=== PATIENT | male | born 1980 | race Hispanic/Latino ===

== ENCOUNTER 2025-01-07 18:37 | Emergency (ER) | payer OTHER ==
[2025-01-07] MEDS ORDERED: Lidocaine 1% PF 5 ML VIAL ONE (20:00)
[2025-01-07] MEDS ORDERED: Bacitracin 1 PK ONE (21:20)
== END 2025-01-07 21:27 ==
LOC: ERS 18:37
DX: S61.216A Laceration without foreign body of right little finger without damage to nail, initial encounter (principal); I10 Essential (primary) hypertension; W26.8XXA Contact with other sharp object(s), not elsewhere classified, initial encounter
CPT/HCPCS: 12001; 99283